=== PATIENT | male | born 1975 | race Caucasian/White ===

== ENCOUNTER 2023-07-07 16:39 | Emergency (ER) | payer SELFPAY ==
[~2023-07-07] VITALS: Ht 180.3 cm; Wt 79.0 kg
[2023-07-07 16:42] VITALS: BP 139/96; PULSE 107; RESP 18; TEMP 98.8; O2SAT 96
== END 2023-07-07 17:25 ==
LOC: ER 16:39
DX: S21.93XA Puncture wound without foreign body of unspecified part of thorax, initial encounter (principal); X58.XXXA Exposure to other specified factors, initial encounter; Y93.89 Activity, other specified; Y92.89 Other specified places as the place of occurrence of the external cause; Y99.8 Other external cause status
CPT/HCPCS: 99284